=== PATIENT | male | born 1965 | race Caucasian/White ===

== ENCOUNTER 2016-07-29 07:12 | Day surgery (SDC) | payer OTHER ==
[~2016-07-29] VITALS: Ht 186.7 cm; Wt 109.2 kg
[2016-07-29] VITALS (12 sets, daily range): BP systolic 120–148; BP diastolic 68–89; PULSE 74–87; RESP 10–19; O2SAT 91–97
[~2016-07-29 07:12] MED LIST: Bupivacaine Liposome 1.3% 20 mL Inj INFILTRATE ONE; CeFAZolin Inj 2 GM in IV Premix 1 EACH IV ONE; Tranexamic Acid 100 mg/mL 10 mL Inj IV SCH; Vancomycin Inj 1,500 MG in 0.9% Sodium Chloride 500 ML IV ONE
[2016-07-29] MEDS ORDERED: Ondansetron 2 mg/mL 2 mL Inj ONE (07:13)
[2016-07-29] MEDS ORDERED: Propofol 10,000 mCg/mL 20 mL Inj ONE (07:13)
[2016-07-29] MEDS ORDERED: fentaNYL-PF 50 mCg/mL 2 mL Inj ONE (07:13)
[2016-07-29] MEDS ORDERED: Lactated Ringer's 1,000 ML IV ONE ×2 (07:23→11:33)
[2016-07-29] MEDS ORDERED: Clindamycin 900 mg/50 mL D5W Premix IV ONE (07:29)
[2016-07-29] MEDS ORDERED: Vancomycin 1,000mg/200 mL NS IV ONE (07:29)
[2016-07-29] MEDS ORDERED: Clindamycin 900 mg/50 mL D5W IV ONE (08:00)
[2016-07-29] MEDS ORDERED: HYDROmorphone 1 mg/mL Inj IVPUSH PRN (08:40)
[2016-07-29] MEDS ORDERED: Lactated Ringer's 500 ML IV PRN ×2 (08:40→09:56)
[2016-07-29] MEDS ORDERED: Dexamethasone 4 mg/mL Inj IVPUSH PRN ×2 (08:40→10:00)
[2016-07-29] MEDS ORDERED: fentaNYL-PF 50 mCg/mL 2 mL Inj IVPUSH PRN ×2 (08:40→10:00)
[2016-07-29] MEDS ORDERED: EPHEDrine Sulfate 50 mg/mL Inj IVPUSH PRN ×2 (08:40→10:00)
[2016-07-29] MEDS ORDERED: MetoCLOpramide 5 mg/mL 2 mL Inj IVPUSH PRN ×2 (08:40→10:00)
[2016-07-29] MEDS ORDERED: Ondansetron 2 mg/mL 2 mL Inj IVPUSH PRN ×2 (08:40→10:00)
[2016-07-29] MEDS ORDERED: Lactated Ringer's 1,000 ML IV SCH ×2 (08:40→09:56)
[2016-07-29] MEDS ORDERED: Phenylephrine 10,000 mCg/mL Inj IVPUSH PRN ×2 (08:40→10:00)
--- NOTE | 2016-07-29 08:40 | PCM.HPANE ---
Patient Data Surgeon Admitting Provider: Attending Provider:Conner Duckworth MD Primary Care Physician:Federico Whitman MD Other Provider:Fern Garciaingham Anesthesia Reason for Visit Left Knee Arthritis Ht/WT & BMI Height (Feet): 6 Height (Inches): 1.50 Weight (Kilograms): 109.200 Body Mass Index 31.00 Allergies Coded Allergies: Penicillins (Verified Allergy, Unknown, rash, 07/24/16) Past Anesthesia History Anesthesia History: Denies:: Abnormal Airway, Anesthesia Reactions, Difficult Intubation, Fam Anesthesia Reaction, Fam Malignant Hypertherm, Malignant Hyperthermia Diabetes History Hx Diabetes?: No MRSA MRSA: No (post op left knee infection - not MRSA (staph)) Medications Hypertension Medication: No Home Meds Incl Beta Pamela: No No Active Prescriptions or Reported Meds History History of ENT Problems?: No HEENT History: Denies:: Abnormal Airway Cataracts Difficult Intubation Dysphagia Glaucoma Hearing Problem Sinus Problem TMJ Denture Type: None Teeth Condition: Within Normal Limits Hx of Heart Problems?: No Cardiovascular History: Denies:: AICD Abdominal Aortic Aneurism Atrial Fibrillation Congestive Heart Failure Coronary Artery Disease Edema Heart Murmur Hypertension Irregular Heartbeat Pacemaker Peripheral Vascular Rheumatic Fever Thrombophlebitis Valvular Heart Disease Hx of Respiratory Problem?: No Respiratory History: Denies:: Asthma (as a child- has grown out of) COPD Emphysema Oxygen Administration Pneumonia Tuberculosis Use of C-PAP Machine Hx Neurologic Problems?: No Neurological History: Denies:: CVA Dizziness Headaches Multiple Sclerosis Parkinson's Disease Seizures TIA Hx of GI Problems?: No Hx of Problems?: No Genitourinary History: Denies:: Kidney Stones Urinary Tract Infection Male Hx: Denies:: Prostate Problems Scrotal Mass Testicular Surgery Skin History: Denies:: History Skin Disorders? Pressure Ulcers Hx Musculoskeletal Problems?: Yes Musculoskeletal History: Positive for:: Musculoskeletal Trauma (left knee current admission problem) Osteoarthritis Denies:: Back Injury Degenerative Joint Fibromyalgia Joint Replacement Hx of Psycho/Social Problems?: No Psycho Social History: Denies:: Anxiety Hx Depression Hx Surgeries?: Yes (bilateral acl repairs) Hx Any Other Health Problems?: Yes Other History: Denies:: Cancer Thyroid Disease History Blood Transfusions: Positive for:: Accept Blood Products? Denies:: Blood Transfusions Hx Diabetes: No Hx Alcohol Use: YesAlcoholic Drinks Per Day: one drink weeklyHx Substance Use : NoHave You Smoked inLast 12 mo: No Stop/Bang Treated for Sleep Apnea?: No Do You Have a CPAP Machine?: No S-Snoring: Do You Snore Loudly: No T-Tired: feel tired, fatigued: No O-Obsered: Observed not breath: No P-Blood Pressure: treated: No B- Body Mass Index > 35 kg/m2: No A- Age over 50: Yes N- Neck Large Circumference: No G- Gender Male: Yes DILIP Total Score: 2 Risk Assessment Category Category 1A: Patient has history of documented sleep apnea, and HAS NOT received any narcotic, sedative or anesthesia administration during this stay. Category 1B: Patient has history of documented sleep apnea, and HAS received any narcotic , sedative or anesthesia administration during this stay Category 2: Patient has SUSPECTED Obstructive Sleep Apnea, and HAS received any narcotic , sedative or anesthesia administration during this stay. Category 3: Patient has SUSPECTED Obstructive Sleep Apnea and HAS NOT received narcotic, sedative or anesthesia administration during this stay. Category 4: Outpatient in Procedural Areas with known sleep apnea or who screen positive for High Risk via the STOP/BANG questionnaire. Exam Exam Vital Signs Vital Signs Date Time Temp Pulse Resp B/P Pulse Ox O2 Delivery O2 Flow Rate FiO2 07/29/16 07:36 36.4 75 16 148/89 97 Room Air General Appearance: Alert, Oriented X3, Cooperative HEENT/AIRWAY: MP 2 Lungs: Clear to Auscultation Heart: Exam Unremarkable Meds/Labs/Diagnostics Admission Meds Current Medications Vancomycin HCl 1500 mg/Sodium Chloride 500 ml @ 333.333 mls/hr ONCE ONCE IV Last administered on 07/29/16 07:57; Start 07/29/16 at 06:00; Stop 07/29/16 at 07:29; Status DC Lactated Ringer's (Lr) 1,000 ml @ 120 mls/hr Q8H20M ONCE IV Last administered on 07/29/16 07:58; Start 07/29/16 at 07:23; Stop 07/29/16 at 15:42 Plan Impression Patient chart reviewed, patient interviewed and anesthestic plan with risks, benefits, and alternatives discussed, and informed consent obtained. ASA Physical Status: ASA2 Mod Systemic Disease Anesthetic Plan: GA Bene/Risks/Altern/Consents: Yes HP Complete Prior to Induction: Yes Charly Watters MD Jul 29, 2016 08:39
[2016-07-29] MEDS ORDERED: 0.9% Sodium Chloride 100 ML ONE (08:52)
[2016-07-29] MEDS ORDERED: Bupivacaine-MPF 0.25%/EPI 30 mL Inj INJ ONE (08:58)
[2016-07-29] MEDS ORDERED: Gentamicin 40 mg/mL 2 mL Inj IRRIGATION ONE (08:58)
[2016-07-29] MEDS: HYDROmorphone 1 mg/mL Inj IVPUSH PRN ×2 (11:05→11:27)
--- NOTE | 2016-07-29 11:22 | DRSVH ---
PROCEDURE: X-RAY LEFT KNEE, ONE OR TWO VIEWS ([id number]) INDICATIONS: CHECK ALIGNMENT TECHNIQUE: 2 views of the knee acquired. COMPARISON: [facility], CR, XR KNEE ARTHRITIC SERIES LT, 06/05/2016, 15:30. FINDINGS: Bones: Patient is status post medial unicompartmental left knee arthroplasty. Hardware components a re in expected positions. There are surgical screws redemonstrated status post prior ACL constructio n. No acute fractures. Soft tissues: Overlying postoperative changes are noted. IMPRESSION: 1. Expected postsurgical changes status post medial unicompartmental arthroplasty of the left knee. Dictated by: Charles Dooley M.D. on 07/29/2016 at 11:19 Approved by: Charles Dooley M.D. on 07/29/2016 at 11:20
[2016-07-29] MEDS ORDERED: oxyCODONE-Acetamin 5-325 mg Tablet PO ONE (11:45)
--- NOTE | 2016-07-29 13:30 | PCM.ANEP1 ---
Post Anesthesia Phase 1 PACU Phase 1 Assessment Vital Signs Vital Signs Date Time Temp Pulse Resp B/P Pulse Ox O2 Delivery O2 Flow Rate FiO2 07/29/16 13:04 74 14 136/79 95 Room Air 07/29/16 11:38 80 12 139/77 93 Room Air 07/29/16 11:30 79 10 137/68 97 Room Air 07/29/16 11:25 76 15 124/73 96 Room Air 07/29/16 11:15 36.3 82 17 129/80 93 Nasal Cannula 2 07/29/16 11:10 80 19 128/77 95 Nasal Cannula 2 07/29/16 11:05 79 16 126/75 96 Nasal Cannula 2 07/29/16 11:00 81 17 126/81 93 Nasal Cannula 2 07/29/16 10:55 84 15 125/78 95 Nasal Cannula 2 07/29/16 10:50 85 18 120/82 93 Nasal Cannula 2 07/29/16 10:43 36.8 87 12 125/79 91 Room Air 07/29/16 07:36 36.4 75 16 148/89 97 Room Air Anesthetic Administered: GA Level of Alertness: Awake, talking SAAVEDRA's with Equal Strength: Yes Pain: Yes Pain Scale Score: 5 Nausea or Vomiting: No Cardiovascular Function and Hy: Yes Oxygen Delivery: Room Air Lungs: Clear to Auscultation Dermatome Level: Full Sensation Complications: No Charly Watters MD Jul 29, 2016 13:30
--- NOTE | 2016-07-29 21:59 | OP ---
[address] [address] OPERATIVE REPORT PATIENT: WONG VUONG : 1965 MR#: [id number] ADMIT: 07/29/2016 JOB ID: [id number] DATE OF SURGERY: PREOPERATIVE DIAGNOSIS(ES): Advanced medial compartment osteoarthritis, left knee. 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 SURGEON: Conner Duckworth MD. TIMBER WATCHMAN: Estefany Bolden PA-C. Plasterer Helper required due to the complexity of the operation. COMPLICATIONS: None. PROCEDURE: 1. Diagnostic arthroscopy to determine appropriateness for unicompartmental knee replacement. 2. Unicompartmental knee replacement. FINDINGS AT SURGERY: Revealed advanced [id number] degenerative changes of the medial compartment. ACL reconstruction from many years ago was intact. Lateral compartment revealed normal meniscus, mild softening of the tibial plateau, intact articular cartilage on the lateral femoral condyle with the exception of mild grade 2 chondromalacia of the posterior femoral condyle. Considering the man's young age, a decision was made to proceed with the unicompartmental knee arthroplasty. The arthroscope was removed from the knee and the knee was lavaged of irrigant. Following of arthroscopy, an anteromedial approach was made to the knee. Dissection carried down. Frontal bossing and a patellar osteophyte removed. The tibial alignment apparatus was assembled and a standard tibial cut was made. The gap grocery checker was utilized and a re-cut block was chosen and the tibial cut was subsequently re-cut. Following this, the spacer block, 9 mm, were utilized. The distal femoral cut was made. The bone fragments were removed. The femur was sized to a #7, chamfer block fixed in appropriate position and rotation, and drill holes and chamfer cuts were made. Tibia was sized to an H tibial component, fixed in appropriate position and rotation, and drill stabilization holes were made. Trial reduction was performed and an 8 mm polyethylene was chosen. All meniscal tissue and osteophytes were carefully removed from the knee. Pressurized lavage was followed by pressurized cementation. Excess cement was removed during the curing process. Final construct was assembled. The tourniquet was let down. The hemostasis was achieved. A deep Hemovac drain was left. Deep fascia was closed over the Hemovac drain with number #2 Quill deep, followed by 2-0 Vicryl, 3-0, and a 4-0 intracuticular stitch. Patient tolerated procedure well. There were no complications.
== END 2016-07-29 23:59 | disposition home or self-care (01) ==
LOC: SAS 07:12
PROVIDERS: ATTEND Orthopaedic Surgery
DX: M17.12 Unilateral primary osteoarthritis, left knee (principal); M94.262 Chondromalacia, left knee
CPT/HCPCS: 27446; 73560; C1713; C1776; J1170; J1580; J1885; J2250; J2405; J2765; J3010; J3370; J7040; J7120